=== PATIENT | female | born 1990 | race Caucasian/White ===

== ENCOUNTER 2020-11-14 03:03 | Outpatient (CLI) | payer OTHER ==
[~2020-11-14] VITALS: Ht 165.1 cm; Wt 82.7 kg
[~2020-11-14 03:03] MED LIST: ACYC-40 PO; DOCU-131 PO; IBUP-1222 PO; OXYC1TAB14 PO; PREN1TAB60 PO
== END 2020-11-14 04:19 | disposition home or self-care (01) ==
LOC: LDOP 03:03
PROVIDERS: ATTEND Obstetrics & Gynecology
DX: O26.893 Other specified pregnancy related conditions, third trimester (principal); R10.9 Unspecified abdominal pain; Z3A.40 40 weeks gestation of pregnancy
CPT/HCPCS: 59025

== ENCOUNTER 2020-11-14 22:30 | Inpatient (IN) | payer OTHER ==
[~2020-11-14] VITALS: Ht 162.6 cm; Wt 82.0 kg
[2020-11-14] MEDS ORDERED: SODIUM CITRATE/CITRIC ACID 30 ML UDC PO PRN (23:00)
[2020-11-14] MEDS ORDERED: ONDANSETRON 2MG/ML, 2ML IVPush PRN (23:00)
[2020-11-14] MEDS ORDERED: OXYTOCIN 30U/ 0.9% NaCL 500ML 500 ML IV ONE (23:00)
[2020-11-14] MEDS ORDERED: FENTANYL PF 100 MCG/2ML IVPush PRN (23:00)
[2020-11-14] MEDS ORDERED: METOCLOPRAMIDE 5 MG/ML, 2ML IVPush PRN (23:00)
[2020-11-14] MEDS ORDERED: LACTATED RINGERS 1,000 ML IV SCH (23:00)
[2020-11-14] MEDS ORDERED: TERBUTALINE 1 MG/ML, 1ML IVPush PRN (23:00)
[2020-11-14] MEDS ORDERED: D5%-LACTATED RINGERS 1,000 ML IV SCH (23:00)
[2020-11-14] MEDS ORDERED: TERBUTALINE 1 MG/ML, 1ML SQ PRN (23:00)
[2020-11-14 23:28] LABS: BASOPHILS % (AUTO) 0 % (0-1); EOSINOPHILS % (AUTO) 0 % (1-7); LYMPHOCYTES % (AUTO) 7 % (22-44); MEAN CORPUSCULAR HEMOGLOBIN 32.8 pg (27.0-34.8); MEAN CORPUSCULAR HGB CONC 34.7 g/dL (32.4-35.8); MEAN PLATELET VOLUME 9.7 fL (7.4-10.4); MONOCYTES % (AUTO) 7 % (2-9); NEUTROPHILS % (AUTO) 86 % (42-75); PLATELET COUNT 130 x10^3/uL (130-400); RED BLOOD COUNT 4.36 x10^6/uL (3.82-5.3); RED CELL DISTRIBUTION WIDTH 14.4 % (9.6-15.2)
[2020-11-14] MEDS ORDERED: NEWBORN KIT ONE (23:42)
[2020-11-15] MEDS ORDERED: FENTANYL/BUPIV./NS/PF 250 ML EPIDCONT ONE (00:34)
[2020-11-15] MEDS ORDERED: BUPIVACAINE 0.25% ONE (00:34)
[2020-11-15] MEDS ORDERED: LACTATED RINGERS 1,000 ML IV SCH (01:00)
[2020-11-15] MEDS ORDERED: NALOXONE 0.4 MG/ML, 1ML IVPush PRN (01:00)
[2020-11-15] MEDS ORDERED: DIPHENHYDRAMINE 50 MG/ML, 1ML IVPush PRN (01:00)
[2020-11-15] MEDS ORDERED: LACTATED RINGERS 1,000 ML IVBOLUS PRN (01:00)
[2020-11-15] MEDS ORDERED: FENTANYL/BUPIV./NS/PF 250 ML EPIDCONT SCH (01:00)
[2020-11-15] MEDS ORDERED: ONDANSETRON 2MG/ML, 2ML IVPush PRN (01:00)
[2020-11-15] MEDS: EPHEDRINE 50 MG/ML, 1ML IVPush PRN ×2 (01:29→01:35)
[2020-11-15] MEDS ORDERED: SODIUM CITRATE/CITRIC ACID 15 ML UDC ONE (06:13)
[2020-11-15] MEDS ORDERED: LIDOCAINE/MPF 2%-EPI 1:200K, 20 ML ONE (06:18)
[2020-11-15] MEDS ORDERED: morphine SULFATE/PF 0.5 MG/ML, 10ML ONE (06:22)
[2020-11-15] MEDS ORDERED: OXYTOCIN 10 UNITS/ML, 1ML ONE (06:24)
[2020-11-15] MEDS ORDERED: ONDANSETRON 2MG/ML, 2ML ONE (06:24)
[2020-11-15] MEDS ORDERED: CEFAZOLIN 1,000 MG ONE (06:24)
[2020-11-15] MEDS ORDERED: KETOROLAC 30 MG/1 ML ONE (06:24)
[2020-11-15] MEDS ORDERED: SODIUM CHLORIDE 0.9% PF 10ML ONE (06:24)
[2020-11-15] MEDS ORDERED: DEXAMETHASONE 4 MG/ML, 1ML ONE (06:24)
[2020-11-15] MEDS: LACTATED RINGERS 1,000 ML IV SCH ×5 (07:28→23:30)
[2020-11-15] MEDS: OXYTOCIN 30U/ 0.9% NaCL 500ML 500 ML IV SCH ×2 (07:28→17:30)
[2020-11-15] MEDS ORDERED: IBUPROFEN 600 MG TABLET PO PRN (07:30)
[2020-11-15] MEDS ORDERED: AZITHROMYCIN 500 MG in SODIUM CHLORIDE 0.9% 250 ML IV ONE (07:30)
[2020-11-15] MEDS ORDERED: ACETAMINOPHEN 325 MG TABLET PO PRN (07:30)
[2020-11-15] MEDS ORDERED: MORPHINE SULFATE 4 MG/ML, 1ML IVPush PRN (07:30)
[2020-11-15] MEDS ORDERED: MISOPROSTOL 200 MCG TABLET PR PRN (07:30)
[2020-11-15] MEDS ORDERED: OXYcodone IR 5MG TABLET PO PRN (07:30)
[2020-11-15] MEDS ORDERED: OXYcodone/APAP 5/325MG TABLET PO PRN (07:30)
[2020-11-15] MEDS ORDERED: ONDANSETRON 2MG/ML, 2ML IV PRN (07:30)
[2020-11-15] MEDS ORDERED: OXYcodone 5 MG/5 ML ORAL.SOL UDC ONE (08:15)
[2020-11-15] MEDS ORDERED: OXYcodone 5 MG/5 ML ORAL.SOL UDC PO PRN (08:30)
[2020-11-15] MEDS: PRENATAL VIT/IRON/FA 1 EACH TABLET PO SCH (09:00)
[2020-11-15 09:08] VITALS: BP 105/65
[2020-11-15] MEDS: KETOROLAC 30 MG/1 ML IV SCH ×2 (13:00→19:24)
[2020-11-15] MEDS ORDERED: PROMETHAZINE 25 MG/ML, 1ML IM ONE (14:30)
[2020-11-15 14:52] LABS: BASOPHILS % (AUTO) 0 % (0-1); EOSINOPHILS % (AUTO) 0 % (1-7); LYMPHOCYTES % (AUTO) 6 % (22-44); MEAN CORPUSCULAR HGB CONC 33.8 g/dL (32.4-35.8); MEAN PLATELET VOLUME 9.6 fL (7.4-10.4); MONOCYTES % (AUTO) 5 % (2-9); NEUTROPHILS % (AUTO) 89 % (42-75); PLATELET COUNT 110 x10^3/uL (130-400); RED BLOOD COUNT 3.98 x10^6/uL (3.82-5.3); RED CELL DISTRIBUTION WIDTH 13.8 % (9.6-15.2)
[2020-11-15 18:05] VITALS: BP 112/71
[2020-11-15 19:25] VITALS: BP 96/59
[2020-11-15] MEDS: DOCUSATE 100 MG CAPSULE PO PRN (20:10)
[2020-11-15] MEDS: SIMETHICONE 80 MG CHEW TAB PO PRN (20:10)
[2020-11-16 00:33] VITALS: BP 93/55
[2020-11-16] MEDS: KETOROLAC 30 MG/1 ML IV SCH ×4 (00:46→19:11)
[2020-11-16] MEDS: LACTATED RINGERS 1,000 ML IV SCH ×6 (03:30→23:30)
[2020-11-16] MEDS: OXYTOCIN 30U/ 0.9% NaCL 500ML 500 ML IV SCH ×3 (03:30→23:30)
[2020-11-16 04:42] VITALS: BP 124/76
[2020-11-16 07:45] VITALS: BP 107/70
[2020-11-16] MEDS: PRENATAL VIT/IRON/FA 1 EACH TABLET PO SCH (09:00)
[2020-11-16 19:15] VITALS: BP 112/71
[2020-11-16] MEDS: DOCUSATE 100 MG CAPSULE PO PRN (20:21)
[2020-11-16] MEDS: SIMETHICONE 80 MG CHEW TAB PO PRN (20:21)
[2020-11-17] MEDS: KETOROLAC 30 MG/1 ML IV SCH ×2 (01:43→07:31)
[2020-11-17 07:05] VITALS: BP 126/77
[2020-11-17] MEDS: LACTATED RINGERS 1,000 ML IV SCH (07:30)
[2020-11-17] MEDS ORDERED: DOCU-131 PO (08:16)
[2020-11-17] MEDS ORDERED: OXYC1TAB14 PO (08:16)
[2020-11-17] MEDS ORDERED: IBUP-1222 PO (08:16)
[2020-11-17] MEDS: DOCUSATE 100 MG CAPSULE PO PRN (11:09)
[2020-11-17] MEDS: PRENATAL VIT/IRON/FA 1 EACH TABLET PO SCH (11:10)
== END 2020-11-17 11:55 | disposition home or self-care (01) | DRG 788 ==
LOC: LDOP 22:30 → LDIP 23:12 → 2NW 11-15 08:55
PROVIDERS: ADMIT Obstetrics & Gynecology; ATTEND Obstetrics & Gynecology
PROC: 10D00Z1 Extraction of Products of Conception, Low, Open Approach (ICD-10-PCS; principal; 2020-11-16)
PROC: 10907ZC Drainage of Amniotic Fluid, Therapeutic from Products of Conception, Via Natural or Artificial Opening (ICD-10-PCS; 2020-11-16)
PROC: 10H07YZ Insertion of Other Device into Products of Conception, Via Natural or Artificial Opening (ICD-10-PCS; 2020-11-16)
DX: O48.0 Post-term pregnancy (principal); O34.211 Maternal care for low transverse scar from previous cesarean delivery; O66.41 Failed attempted vaginal birth after previous cesarean delivery; O69.81X0 Labor and delivery complicated by cord around neck, without compression, not applicable or unspecified; O76 Abnormality in fetal heart rate and rhythm complicating labor and delivery; Z37.0 Single live birth; Z3A.40 40 weeks gestation of pregnancy; Z20.822 Contact with and (suspected) exposure to COVID-19
CPT/HCPCS: 36415; 85025; 86592; 86850; 86900; 87635; G0378; J0456; J0690; J1100; J1885; J2274; J2405; J2550; J3010; J2590; J2765; J7050; J7120